=== PATIENT | female | born 1975 | race African-American/Black ===

== ENCOUNTER 2022-05-22 20:48 | Emergency (ER) | payer OTHER, SELFPAY ==
--- NOTE | ~2022-05-22 | XR_ITS ---
EXAM: XR tibia fibula RT 2V DATE: 05/22/2022 21:41 HISTORY: FALL, MID TIB FIB PAIN . COMPARISON: None available. FINDINGS: Normal mineralization. No fracture or dislocation. No lytic or blastic lesion. Joint space s are maintained. No erosion or periosteal change. Soft tissues within normal limits. IMPRESSION: No acute osseous finding in the right tibia/fibula. Reviewed, dictated and finalized at location [facility]
[2022-05-22 20:51] VITALS: BP 137/74; PULSE 93; RESP 16; TEMP 36.6; O2SAT 100
--- NOTE | 2022-05-22 22:29 | ED.LOWEXIN ---
HPI - Extremity Injury (Lower) General Chief Complaint: Extremity Injury, Lower Stated Complaint: R leg injury from fall Time Seen by Provider: 05/22/22 21:02 History of Present Illness HPI Narrative: Patient is a 46-year-old female who presents ER with pain to the right baker. She was at work when she tripped and fell into a cart she was pushing. She struck her left baker against a bar on the cart. She has had mild limp since the fall. She not strike her head or lose consciousness. No new numbness or tingling in the leg. No pain to the foot or ankle. Related Data Allergies Allergy/AdvReac Type Severity Reaction Status Date / Time No Known Allergies Allergy Verified 05/22/22 20:54 Review of Systems Musculoskeletal: Musculoskeletal: Denies arthralgias and Denies joint swelling Comments: Right baker pain Integumentary/Breasts: Skin/Breast: Denies rash and Denies skin ulcer Neurologic: Denies syncope, Denies numbness and Denies weakness PMFSH Past Medical History Medical History (Updated 05/22/22 @ 22:37 by Amadeo Salazar MD) GERD (gastroesophageal reflux disease) Surgical History Surgical History (Updated 05/22/22 @ 22:37 by Amadeo Salazar MD) No pertinent past surgical history Exam Narrative: GENERAL: Well-appearing, well-nourished, and in no acute distress. HEAD: Normocephalic, atraumatic. CHEST: Clear to auscultation. No respiratory distress. HEART: Regular rate and rhythm. Normal peripheral pulses. EXTREMITIES: Normal range of motion. No edema. Mild tenderness right anterior baker without break in skin INR deformity/contusion. Normal dorsalis pedis and posterior tibial pulses. No tenderness of the ankle or foot. SKIN: Warm, dry, no rash. NEURO: Alert and oriented x3. PSYCH: Normal mood and affect. Course Course Emergency Course: Negative x-ray for fracture. Feel patient has soft tissue contusion. Discharge home. Vital Signs Vital signs: Vital Signs Temperature 98 F 05/22/22 20:51 Pulse Rate 93 05/22/22 20:51 Respiratory Rate 16 05/22/22 20:51 Blood Pressure 137/74 05/22/22 20:51 Pulse Oximetry 100 05/22/22 20:51 Oxygen Delivery Room Air 05/22/22 20:51 Temperature 98 F 05/22/22 20:51 Pulse Rate 93 05/22/22 20:51 Respiratory Rate 16 05/22/22 20:51 Blood Pressure 137/74 05/22/22 20:51 Pulse Oximetry 100 05/22/22 20:51 Oxygen Delivery Room Air 05/22/22 20:51 MDM - Extremity Injury (Lower) Imaging Data Radiologist's impression: ITS Impressions Tibia/Fibula X-Ray 05/22/22 21:56 IMPRESSION: No acute osseous finding in the right tibia/fibula. Discharge Plan Discharge Clinical Impression: Contusion of leg, right Patient Disposition: Home, Self-Care Condition: Stable Instructions: Contusion in Adults (ED) Additional Instructions: X-rays do not show any fracture to your leg. It is felt that you suffered a contusion to your baker. You may expect some bruising in the next couple of days. Return the ER if you have new injury, you have swelling of your leg, or you have additional concerns. Take Tylenol or ibuprofen as needed for pain. Follow-up/Referrals: PHYSICIAN NOT ON STAFF,NONSTAFF [Primary Care Provider] - 1 Week
== END 2022-05-22 23:05 | disposition home or self-care (01) ==
PROVIDERS: Emergency Provider Emergency Medicine
DX: S80.11XA Contusion of right lower leg, initial encounter (principal); K21.9 Gastro-esophageal reflux disease without esophagitis; W01.0XXA Fall on same level from slipping, tripping and stumbling without subsequent striking against object, initial encounter
CPT/HCPCS: 73590; 99283